=== PATIENT | male | born 1990 | race Caucasian/White ===

== ENCOUNTER 2018-11-29 08:43 | Inpatient (IN) | payer OTHER ==
[~2018-11-29] VITALS: Ht 193 cm; Wt 65.8 kg
[2018-11-29 08:43] VITALS: BP 128/92
[~2018-11-29 08:43] MED LIST: PEPCID20 MG PO; POTASSIUM20 PO; PRILOSEC20 MG PO; PROMS25 WY RECTAL; SLOW-MAG64 MG PO; ZOFRAN ODT4 MG PO
[2018-11-29 09:10] LABS: ABSOLUTE NEUTROPHILS 8.3 thou/uL (1.4-8.2); BASOPHILS 0.4 % (0.0-2.0); EOSINOPHILS 0.2 % (0.0-3.0); HEMATOCRIT 43.3 % (42.0-52.0); LYMPHOCYTES 13.5 % (24.0-44.0); MCH 32.4 pg (26.0-34.0); MCHC 34.7 g/dL (28.0-37.0); MCV 93.6 fL (80.0-100.0); MONOCYTES 5.2 % (1.0-8.0); PLATELET COUNT 243 thou/uL (150-400); POLYS 80.7 % (36.0-66.0); RBC 4.63 mil/uL (4.50-6.00); RDW 13.2 % (10.5-14.5); WBC 10.3 thou/uL (4.0-11.0)
[2018-11-29 09:23] LABS: CALCIUM 9.7 mg/dL (8.5-10.1); CREATININE 0.9 mg/dL (0.7-1.3); POTASSIUM 3.5 mmol/L (3.5-5.1)
[2018-11-29 09:27] LABS: ALBUMIN 4.9 g/dL (3.4-5.0); TOTAL BILIRUBIN 1.3 mg/dL (<0.1-1.0); TOTAL PROTEIN 8.1 g/dL (6.4-8.2)
[2018-11-29 10:35] LABS: URINE BILIRUBIN NEGATIVE (Negative); URINE BLOOD NEGATIVE (Negative); URINE CLARITY CLOUDY; URINE COLOR YELLOW; URINE GLUCOSE-RANDOM* NEGATIVE (Negative); URINE KETONES 3+ (Negative); URINE LEUKOCYTES-REFLEX NEGATIVE (Negative); URINE NITRITE-REFLEX NEGATIVE (Negative); URINE PROTEIN (DIPSTICK) TRACE (Negative); URINE UROBILINOGEN 0.2 E.U./dl (0.2-1.0)
[2018-11-29 10:43] LABS: AMP/METHAMP Negative (Negative); BARBITURATES Negative (Negative); BENZODIAZEPINES Negative (Negative); COCAINE Negative (Negative); METHADONE Negative (Negative); OPIATES Negative (Negative); PCP Negative (Negative); URINE REDUCING SUBSTANCE NEGATIVE
[2018-11-29 12:42] VITALS: BP 137/94
[2018-11-29 14:58] VITALS: BP 132/72
--- NOTE | 2018-11-29 18:00 | NUR ---
ADMISSION ASSESMENT COMPLETED. VSS. LETHARGIC. DENIES PAIN. DRY HEAVING. ZOFRAN GIVEN ORDERED. NO NOTED SOA. IVF INFUSING. BED ALARM ON. WILL CONT. TO MONITOR.
[2018-11-29 20:00] VITALS: BP 116/65
--- NOTE | 2018-11-30 02:30 | NUR ---
Assumed care at 1845. Pt resting in bed. at bedside. Still feelig lethargic. Hasnt been heaving. Hasnt requested any nausea medication. Been using urinal. Still NPO. No identified needs at the moment. Call light within reach. Will continue to monitor.
[2018-11-30 04:00] VITALS: BP 122/74
[2018-11-30 05:17] LABS: ALBUMIN 3.5 g/dL (3.4-5.0); CALCIUM 8.2 mg/dL (8.5-10.1); CREATININE 0.8 mg/dL (0.7-1.3); POTASSIUM 3.7 mmol/L (3.5-5.1); TOTAL BILIRUBIN 1.4 mg/dL (<0.1-1.0); TOTAL PROTEIN 6.1 g/dL (6.4-8.2)
[2018-11-30 08:20] VITALS: BP 112/60
--- NOTE | 2018-11-30 09:19 | NUR ---
PT C/O OF N&V GIVEN IV ZOFRAN. RESTING IN BED AT BEDSIDE.
--- NOTE | 2018-11-30 10:34 | NUR ---
DR HOOPER HERE TO SEE PATIENT NEW ORDERS : CLEAR DIET UNTIL LUNCH THEN REGULAR DIET. AMBULATE TOLERATED AND DC TELE MONITORING. PATIENT TO DISCHARGE THIS AFTERNOON IF AMBULATING AND EATING.
[2018-11-30] MEDS ORDERED: ZOFRAN 4 MG ORAL4 MG DISSOLVE (11:53)
[2018-11-30] MEDS ORDERED: PEPCID20 MG PO (11:53)
[2018-11-30 12:07] VITALS: BP 112/60
[2018-11-30 13:11] VITALS: BP 112/60
--- NOTE | 2018-11-30 13:28 | NUR ---
DISCHARGE PAPERS GONE OVER WITH PATIENT. SIGNED AND COPY IN CHART. IV ACSESS DCD. ALL BELONGINGS PACKED AND SENT WITH PATIENT. NO PAIN OR RESP DISTRESS AT DISCHARGE.
[2018-11-30 13:33] VITALS: BP 112/60
[2018-12-01] MEDS ORDERED: PHENERGAN 25 MG25 M1 PO (14:36)
[2018-12-01] MEDS ORDERED: PEPCID40 MG PO (14:36)
[2018-12-01] MEDS ORDERED: PROMS25 WY RECTAL (14:36)
--- NOTE | 2018-12-02 08:30 | EKG ---
[address] [address] ELECTROCARDIOGRAM REPORT Name: CHEMA MCGHEE Room #: 206- DIS IN M.R.#: [id number] ������������������ Admission: 11/29/18 ������������������ Attend Phys: Danny Herrera MD Discharge: 11/30/18 ������������������ Date of : 89 Report #: [id number] ����������������������������������������������������������������� [id number] THIS REPORT FOR: //name// [facility] ED Test Date: 2018-11-29 Test Time: 09:01:12 Pat Name: CHEMA MCGHEE Department: Room: 206 Gender: M [employer] Portal Developer: YONATHAN : 1990 Requested By: Danny Herrera Order Number: [id number] MD: Sushant Smith Measurements Intervals [place] Rate: 46 P: -35 FL: 130 QRS: 81 QRSD: 115 T: 58 QT: 461 QTc: 404 Interpretive Statements Sinus bradycardia Incomplete right bundle branch block Compared to ECG 05/25/2015 08:43:06 ST (T wave) deviation no longer present Possible ischemia no longer present Electronically Signed On 12-02-2018 8:30:25 CDT by Sushant Smith [email or web address] ��������������������������������������������� <ELECTRONICALLY SIGNED> ���������������������������������������� By: Sushant Smith MD ��������������������������������������������� 12/02/18 0830 0 0 Sushant Smith MD /EPI
== END 2018-11-30 13:36 | disposition home or self-care (01) | DRG 917 ==
LOC: ER 08:43 → EROBS 12:33 → 2N 14:59
PROVIDERS: Emergency Medicine; ADMIT Internal Medicine
DX: T40.7X1A Poisoning by cannabis (derivatives), accidental (unintentional), initial encounter (principal); G92 Toxic encephalopathy; E86.0 Dehydration; R53.83 Other fatigue; F12.90 Cannabis use, unspecified, uncomplicated; F17.200 Nicotine dependence, unspecified, uncomplicated; R00.1 Bradycardia, unspecified; R11.10 Vomiting, unspecified; Z79.899 Other long term (current) drug therapy; Q67.6 Pectus excavatum; Z71.6 Tobacco abuse counseling; Y92.89 Other specified places as the place of occurrence of the external cause
CPT/HCPCS: 10081

== ENCOUNTER 2018-12-01 11:49 | Emergency (ER) | payer OTHER ==
[~2018-12-01] VITALS: Ht 177.8 cm; Wt 74.8 kg
[~2018-12-01 11:49] MED LIST changes: +ZOFRAN 4 MG ORAL4 MG DISSOLVE
[2018-12-01 12:58] LABS: ABSOLUTE NEUTROPHILS 7.7 thou/uL (1.4-8.2); BASOPHILS 0.4 % (0.0-2.0); EOSINOPHILS 0.2 % (0.0-3.0); HEMATOCRIT 41.5 % (42.0-52.0); HEMOGLOBIN 14.4 gm/dL (14.0-18.0); LYMPHOCYTES 13.2 % (24.0-44.0); MCH 32.3 pg (26.0-34.0); MCHC 34.8 g/dL (28.0-37.0); MONOCYTES 4.8 % (1.0-8.0); PLATELET COUNT 220 thou/uL (150-400); POLYS 81.4 % (36.0-66.0); RBC 4.46 mil/uL (4.50-6.00); RDW 12.9 % (10.5-14.5); WBC 9.5 thou/uL (4.0-11.0)
[2018-12-01 13:02] LABS: CREATININE 0.9 mg/dL (0.7-1.3); POTASSIUM 3.3 mmol/L (3.5-5.1)
[2018-12-01 13:08] LABS: ALBUMIN 4.1 g/dL (3.4-5.0); MAGNESIUM 1.9 mg/dL (1.8-2.4)
[2018-12-01] MEDS ORDERED: PROMS25 WY RECTAL (14:36)
[2018-12-01] MEDS ORDERED: PEPCID40 MG PO (14:36)
[2018-12-01] MEDS ORDERED: PHENERGAN 25 MG25 M1 PO (14:36)
[2018-12-01 15:27] VITALS: BP 126/75
== END 2018-12-01 15:29 | disposition home or self-care (01) ==
LOC: ER 11:49
PROVIDERS: Emergency Medicine
DX: G43.A0 Cyclical vomiting, in migraine, not intractable (principal); F12.90 Cannabis use, unspecified, uncomplicated; F17.210 Nicotine dependence, cigarettes, uncomplicated; R55 Syncope and collapse